=== PATIENT | female | born 1970 ===

== ENCOUNTER 2018-05-11 18:41 | Emergency (ER) | payer MEDICAID ==
[~2018-05-11] VITALS: Ht 157.5 cm; Wt 66.5 kg
--- NOTE | 2018-05-11 20:00 | NUR ---
PT TO RM 15 FROM [facility] AND CARE ASSUMED. PT C/O SOB AND COUGH FOR THE LAST WEEK. NON-PRODUCTIVE. PT ALSO C/O INTERMITTENT CP--MOSTLY AFTER COUGHING. VSS. NO S/S OF ACUTE RESP DISTRESS. NSR ON MONITOR. CALL LIGHT IN REACH. AWAITING TEST RESULTS.
[2018-05-11 20:20] LABS: BASOPHILS # (AUTO) 0.03 x10^3/uL (0-0.1); BASOPHILS % (AUTO) 1 % (0-1); EOSINOPHILS # (AUTO) 0.15 x10^3/uL (0-0.4); EOSINOPHILS % (AUTO) 3 % (1-7); LYMPHOCYTES % (AUTO) 28 % (22-44); MD NO; MEAN CORPUSCULAR HEMOGLOBIN 24.5 pg (27.0-34.8); MEAN CORPUSCULAR HGB CONC 31.9 g/dL (32.4-35.8); MEAN CORPUSCULAR VOLUME 76.9 fL (80-100); MEAN PLATELET VOLUME 7.7 fL (7.4-10.4); MONOCYTES % (AUTO) 11 % (2-9); NEUTROPHILS # (AUTO) 2.71 x10^3/uL (1.8-6.8); NEUTROPHILS % (AUTO) 58 % (42-75); PLATELET COUNT 282 x10^3/uL (130-400); RED BLOOD COUNT 4.21 x10^6/uL (3.82-5.3); RED CELL DISTRIBUTION WIDTH 15.9 % (9.6-15.2)
[2018-05-11 20:29] LABS: ALBUMIN 3.3 g/dL (3.4-5.0); ANION GAP 6 mmol/L (5-15); CALCIUM 7.9 mg/dL (8.5-10.1); CHLORIDE 113 mmol/L (98-107); CREATININE 0.97 mg/dL (0.55-1.02)
[2018-05-11 20:33] LABS: TROPONIN I < 0.015 ng/mL (0.000-0.045)
[2018-05-11 21:09] VITALS: BP 124/77
== END 2018-05-11 21:21 | disposition home or self-care (01) ==
LOC: ED 21:00
DX: J20.8 Acute bronchitis due to other specified organisms (principal); B34.9 Viral infection, unspecified; M06.9 Rheumatoid arthritis, unspecified; Z87.891 Personal history of nicotine dependence
CPT/HCPCS: 36415; 71046; 80048; 82040; 84484; 85025; 93005; 99284